=== PATIENT | male | born 1985 | race Caucasian/White ===

== ENCOUNTER 2018-11-28 14:03 | Day surgery (SDC) | payer OTHER ==
[~2018-11-28] VITALS: Ht 182.9 cm; Wt 96.6 kg
[2018-11-28] MEDS ORDERED: METOCLOPRAMIDE H5 MG PO (14:17)
[2018-11-28] MEDS ORDERED: ZOFRAN8 MG PO (14:20)
--- NOTE | 2018-11-28 15:41 | NUR ---
11/28/18 1541 Pedro Fiore7) PATIENT ARRIVES ALERT AND ORIENTED, WITH 0 COMPLAINTS.
--- NOTE | 2018-11-30 16:02 | OR ---
[facility] [address], [place] [address] Signed DATE OF OPERATION: 11/28/2018 SURGEON: Stone Wiggins MD PREOPERATIVE DIAGNOSES: 1. Recent appearance of colonic obstruction at sigmoid on CT scan, progressive months of bloating and fullness. 2. Diverticular changes. POSTOPERATIVE DIAGNOSES: 1. Inflammatory stricture at approximately 28 cm. 2. Mild proctitis. PROCEDURES PERFORMED: Colonoscopy beyond hepatic flexure into right colon with biopsies of strictured area at 28 cm and biopsy of rectum. ANESTHESIA: Intravenous sedation, fentanyl 150 mcg, and Versed 10 mg. INDICATION: This 33-year-old white man is a patient of Linnea Webster and has rather complex past medical history. This includes Hodgkin lymphoma diagnosed at age 16 years, undergoing treatment at [facility] including chemotherapy and radiation therapy. He is said to have stage IIA disease at that time manifesting by cervical adenopathy. 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 He recently underwent CT scan of the abdomen under the direction of BURTON Canales, for abdominal bloating, fullness, and so forth. This showed what appeared to be essentially obstructed colon with considerable amount of proximal dilation from the rectosigmoid upward. Strangely, he did not have profound illness and conservative measures including enema therapy and episodic magnesium citrate and a low-fiber diet allowed for improvement. A post preliminary bowel prep abdominal x-ray showed a fair amount of air within the colon, but no profound amount of stool as there was before. He has undergone a bowel prep with split doses of magnesium citrate, so as to not precipitate a complete and total obstruction. He is admitted to undergo colonoscopy to better characterize the obstructive process in the sigmoid. He understands the risks of bleeding, infection, and perforation and wished to proceed. FINDINGS: Electronically Signed By: STONE WIGGINS MD 11/30/18 1602 PATIENT NAME: MIN GILLETTE OPERATIVE REPORT DATE OF : 81 REPORT #: [id number] PHYSICIAN: STONE WIGGINS MD PCP: LINNEA WEBSTER PA-C REPORT IS CONFIDENTIAL AND NOT TO BE RELEASED WITHOUT AUTHORIZATION [facility] [address], [place] [address] Signed The area in question was at about 28 cm from the anal verge and represented inflamed mucosa of the colon, most consistent with inflammatory stricture (incomplete). This may have been caused by diverticular changes as there were diverticula in the sigmoid and left colon as well. With great care and fair amount of effort, the scope was passed beyond the strictured area proximally all the way to the right colon where liquid stool was noted, but it was a poorly prepped bowel in most respects from that regard. Good biopsies of the lesion in question were undertaken however. There was good clearance beyond the presumed inflammatory stricture at 28 cm. The rectum had mild inflammation and biopsies were obtained there. DESCRIPTION OF PROCEDURE: The patient was brought to the endoscopy suite and placed in lateral decubitus position, given intravenous sedation to the point of slurred speech and nystagmus. Full cardiopulmonary monitoring was undertaken. Digital rectal examination was normal. An Olympus video colonoscope was passed in the rectum and manipulated into the rectosigmoid where diverticula were noted as well as some bits of semi-formed stool. Irrigation was undertaken as needed. The scope was advanced further and diverticula were noted at approximately 28-30 cm, an area that was dense and firm and rubbery noted. This appeared to have inflammatory mucosa. There was no sign of neoplasm proper. With various manipulations, the scope was managed to pass beyond this area. The descending colon had semi-formed and liquid stool. The scope was passed beyond this ultimately into the right colon with similar findings. The scope was then withdrawn and careful examination undertaken in the left colon. In addition, a diverticula was the area in question of obstruction, which appeared to be an inflammatory stricture. It was reasonably circumferential but irregular. It did not appear like cancer and did not appear to be intramural lymphoma. Multiple biopsies were taken of the area. The scope was withdrawn and the rectum itself had mild chronic inflammation. This was biopsied as well. Scope was removed. The patient was taken to recovery room in good condition. CONCLUDING DIAGNOSIS: Apparent incomplete inflammatory stricture of sigmoid, probably related to diverticular disease. No clear evidence of cancer in any way and unlikely to represent a recurrence of Hodgkin lymphoma. PLAN: We will maintain a low-fiber diet until I see him back in a few weeks. Additional imaging or even repeat endoscopy at some point may be appropriate. Stone Wiggins MD Electronically Signed By: STONE WIGGINS MD 11/30/18 1602 PATIENT NAME: MIN GILLETTE OPERATIVE REPORT DATE OF : [birth year] REPORT #: [id number] PHYSICIAN: STONE WIGGINS MD PCP: LINNEA WEBSTER PA-C REPORT IS CONFIDENTIAL AND NOT TO BE RELEASED WITHOUT AUTHORIZATION [address], [place] [address] Signed /[facility] /[id number] cc: Linnea Webster PA-C Copies: LINNEA WEBSTER PA-C ~ Electronically Signed By: STONE WIGGINS MD 11/30/18 1602 PATIENT NAME: MIN MYLA OPERATIVE REPORT DATE OF : [birth year] REPORT #: [id number] PHYSICIAN: STONE WIGGINS MD PCP: LINNEA WEBSTER PA-C REPORT IS CONFIDENTIAL AND NOT TO BE RELEASED WITHOUT AUTHORIZATION
== END 2018-11-28 16:10 | disposition home or self-care (01) ==
LOC: DS 14:03 → OPS 14:03 → DS 15:15 → OPS 16:10
PROVIDERS: Surgery
PROC: 0DBE8ZX Excision of Large Intestine, Via Natural or Artificial Opening Endoscopic, Diagnostic (ICD-10-PCS; 2018-11-28)
PROC: 0DBP8ZX Excision of Rectum, Via Natural or Artificial Opening Endoscopic, Diagnostic (ICD-10-PCS; 2018-11-28)
PROC: 0DBK8ZX Excision of Ascending Colon, Via Natural or Artificial Opening Endoscopic, Diagnostic (ICD-10-PCS; principal; 2018-11-28 15:15)
DX: K56.699 Other intestinal obstruction unspecified as to partial versus complete obstruction (principal); K62.89 Other specified diseases of anus and rectum; K57.30 Diverticulosis of large intestine without perforation or abscess without bleeding; D22.9 Melanocytic nevi, unspecified; Z79.899 Other long term (current) drug therapy; Z85.71 Personal history of Hodgkin lymphoma
CPT/HCPCS: 99153; G0500; J2250; J3010

== ENCOUNTER 2019-03-07 22:27 | Emergency (ER) | payer OTHER ==
[~2019-03-07] VITALS: Ht 177.8 cm; Wt 88.5 kg
--- OUTSIDE RECORDS SUMMARY | ~2019-03-07 | XMS | Clinical Summary ---
Demographics + + + | Address | [address] | | | [place] [address] | + + + | Home Phone | | + + + | Preferred Language | Unknown | + + + | Marital Status | | + + + | Mu-Ism Affiliation | Unknown | + + + | Race | Unknown | + + + | Ethnic Group | Unknown | + + + Author + + + | Author | [facility] | | | and [place] | + + + | Organization | [facility] | | | and [place] | + + + | Address | Unknown | + + + | Phone | Unavailable | + + + Care Team Providers + +------+ + | Care Metal Punch Press Operator Name | Role | Phone | + +------+ + PCP | Unavailable | + +------+ + Allergies Not on File Medications Not on file Active Problems Not on file Social History + +-------+ +--------+------+ | Tobacco Use | Types | Packs/Day | Years | Date | | | | | Used | | + +-------+ +--------+------+ | Never Assessed | | | | | + +-------+ +--------+------+ + + + | Sex Assigned at | Date Recorded | | | | + + + | Not on file | | + + + + + + + | Job Start Date | Occupation | Industry | + + + + | Not on file | Not on file | Not on file | + + + + + + + + | Travel History | Travel Start | Travel End | + + + + + + | No recent travel history available. | + + Last Filed Vital Signs Not on file Plan of Treatment + + + + + | Health Maintenance | Due Date | Last Done | Comments | + + + + + | Vaccine: | | | | | Dtap/Tdap/Td (1 - | 3 | | | | Tdap) | | | | + + + + + | Vaccine: Influenza | | | | | (#1) | 9 | | | + + + + + Results Not on filefrom Last 3 Months"
--- OUTSIDE RECORDS SUMMARY | ~2019-03-07 | XMS | Clinical Summary ---
Demographics + + + | Address | [address] | | | [place] [address] | + + + | Home Phone | | + + + | Preferred Language | Unknown | + + + | Marital Status | | + + + | Mu-Ism Affiliation | Unknown | + + + | Race | Unknown | + + + | Ethnic Group | Unknown | + + + Author + + + | Author | [facility] | | | and [place] | + + + | Organization | [facility] | | | and [place] | + + + | Address | Unknown | + + + | Phone | Unavailable | + + + Care Team Providers + +------+ + | Care Marketing Admin Name | Role | Phone | + [...]
[~2019-03-07 22:27] MED LIST: FAMOTIDINE20 MG PO; FLAGYL500 MG PO; IBUPROFEN600 MG PO; METOCLOPRAMIDE H5 MG PO; NEOMYCIN SULFA500 MG PO; TYLENOL EXTRA500 MG PO; ZOFRAN8 MG PO
--- OUTSIDE RECORDS SUMMARY | 2019-03-07 22:30 | XMS ---
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 Ermelinda has no Care Guidelines for this patient. Rory VISIT COUNT (12 MO.) 1 [facility] TOTAL 1 NOTE: Visits indicate total known visits. ED/UCC VISIT TRACKING (12 MO.) 03/07/2019 22:27 [facility] [place] TYPE: Emergency COMPLAINT: - ABDOMINAL PAIN INPATIENT VISIT TRACKING (12 MO.) 01/10/2019 08:[address] [facility] TYPE: Medical Surgical COMPLAINT: - LEFT COLECTOMY DIAGNOSES: - Appendicular concretions - Other long-term (current) drug therapy - Personal history of nicotine dependence - Appendicular concretions - Unspecified intestinal obstruction, unspecified as to partial versus complete obstruction - Personal history of Hodgkin lymphoma - Personal history of nicotine dependence - Other long lines operator (current) drug therapy - Other specified disorders of muscle - FDC (current) use of antibiotics - Other partial intestinal obstruction - Personal history of Hodgkin lymphoma - Other appendicitis - Other appendicitis - Other specified disorders of muscle - FDC (current) use of antibiotics [email or web address]
[2019-03-07] MEDS ORDERED: RITALIN20 MG PO (22:40)
--- NOTE | 2019-03-08 10:24 | CONS ---
[facility] [address], [place] [address] Signed DATE OF CONSULTATION: CONSULTING PHYSICIAN: Stone Wiggins MD. REQUESTING PHYSICIAN: Oli Bose MD PROBLEM: Prolapsed ileostomy. HISTORY: This 33-year-old white man is well known to me from the past. He had chronic sigmoid obstruction related to stricturing requiring a left sigmoid colectomy with side-to-end coloproctostomy. He had massive dilation of the proximal end and a protective loop ileostomy was fashioned. This was approximately six weeks ago or so. The patient has been progressing well with good function of his ileostomy. A plan for barium enema to assess the anastomosis to allow for takedown of the temporary diverting loop ileostomy has been outlined. The patient today upon removing his ostomy appliance noted marked protrusion of small bowel. A considerable amount of edema and weeping and so forth was noted. He presented to the emergency room, where he was thoroughly evaluated by the emergency room physician whose efforts at reduction were a bit unsuccessful. Some granulated sugar was applied to the area, but of incomplete benefit. On that basis, I was asked to further assist. PHYSICAL EXAMINATION: GENERAL: The patient is alert and oriented and certainly nontoxic. He is accompanied by his live-in girlfriend, who is a registered nurse. ABDOMEN: The ileostomy appears to be viable though there was some considerable amount of edema and a purplish hue to some of the mucosa. There was no sign of separation of the ileostomy from the skin itself. It is recalled that the skin around the ileostomy is from prior skin grafting and therefore has a coarse texture. DESCRIPTION OF PROCEDURE: In the supine position, gloves were used to manually reduce the edema of the ileostomy itself. This allowed for some reduction. Ultimately, the skin was cleansed and an ostomy appliance cut to appropriate configuration and then secured. Granulated sugar was then applied to still somewhat edematous mucosa in the distal defunctionalized limb. The more proximal functional limb is quite viable and probing of each orifice shows good patency. Egress of air from the proximal end is noted and there is no sign of ischemic necrosis or anything of that sort. Electronically Signed By: STONE WIGGINS MD 03/08/19 1024 PATIENT NAME: MIN GILLETTE CONSULTATION DATE OF : 81 REPORT #: [id number] PHYSICIAN: STONE WIGGINS MD PCP: ACOSTA CHADWICK PA-C REPORT IS CONFIDENTIAL AND NOT TO BE RELEASED WITHOUT AUTHORIZATION [facility] [address] [place] [id number] Signed I confirmed with Radiology Department that a contrast study could be undertaken per rectum tomorrow. Arrangements will be made to accomplish this study to allow for prompt takedown of the loop ileostomy. If there is no leakage, and I do not suspect there would be, then takedown of the ileostomy could be accomplished so as to avoid a recurrence of this episode. The patient and his significant other understand the issues at hand and will be proceeding home shortly. MD PIERRE Vanessa/SAUD /[id number] cc: Oli Bose MD Copies: OLI BOSE MD ~ Electronically Signed By: STONE WIGGINS MD 03/08/19 1024 PATIENT NAME: MIN GILLETTE CONSULTATION DATE OF : 81 REPORT #: [id number] PHYSICIAN: STONE WIGGINS MD PCP: ACOSTA CHADWICK PA-C REPORT IS CONFIDENTIAL AND NOT TO BE RELEASED WITHOUT AUTHORIZATION
== END 2019-03-08 00:24 | disposition home or self-care (01) ==
LOC: ED 22:27
DX: K94.19 Other complications of enterostomy (principal); Z79.899 Other long term (current) drug therapy
CPT/HCPCS: 99283

== ENCOUNTER 2019-03-11 22:51 | Inpatient (IN) | payer OTHER ==
[~2019-03-11] VITALS: Ht 177.8 cm; Wt 91.7 kg
--- NOTE | ~2019-03-11 | DS ---
[facility] [address] [place], [place] [address] Draft ADMISSION DATE: 03/12/2019 DISCHARGE DATE: 03/15/2019 REASON FOR ADMISSION: This 33-year-old man is well known to me from the past having undergone complicated sigmoid colectomy with markedly dilated proximal colon related to benign stricture in the sigmoid colon. This was on January 10, 2019. He underwent resection of the sigmoid with side-to-end coloproctostomy and a protective ileostomy based on the dilated and edematous more proximal colon. Plans have been made for takedown of the ileostomy in 4-6 weeks following resection. He was seen by me recently on March 08 in the emergency room where he was noted to have a prolapsing segment of the ileum. This was in the distal portion. Had good continued output of enteric effluent as might be expected. He underwent a contrast study from below (barium enema) confirming a patent anastomosis without sign of leakage and plan for elective ileostomy takedown were anticipated. He presented to the emergency room late in the night with bloody effluent related to the prolapsing ileum, however. On March 08, the ileum was reduced and edema reduced with granulated sugar as well as manipulation, but he has had pain in the region of the ileostomy itself and on that basis, he is admitted for further evaluation and care. PERTINENT PHYSICAL EXAMINATION: GENERAL: A well-developed, well-nourished white man who did not look systemically toxic. He is accompanied by his girlfriend who is a nurse. CHEST: Clear. HEART: Regular without murmur. ABDOMEN: Nondistended. Midline incision is well healed. Ileostomy is examined, showing protrusion and prolapsing, and the distal diverted end has no sign of freddy necrosis though there were definitely edematous changes and a hemorrhagic exudate. LABORATORY DATA: Lab studies were normal. His bicarb was 26. CBC showed a white count of 6.4. HOSPITAL COURSE: He was admitted, given intravenous fluids, parenteral pain medication and IV antibiotics. Given the ischemic mucosa of the prolapsing ileostomy, takedown of the ileostomy with resection of the offending segment was deemed most appropriate. On Wednesday the following day of admission, he did undergo operation through the ileostomy site. This included segmental resection of small bowel with end-to-end ileo-ileostomy. 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 On that basis, those segments of skin were mobilized and reapproximated with interrupted Prolene suture after fascial repair of the ileostomy defect and a Arthur drain was placed beneath that for drainage. His postoperative course was rather unremarkable. He was maintained on antibiotics for 24 hours postoperatively and advanced in his diet. An opiate free approach was taken and Motrin and Tylenol were beneficial for his pain control. In addition, a unilateral right-sided tap block was used. By day of discharge, he is ambulating well, having normal bowel movements. The wound is healing well. He is tolerating regular diet and Tylenol and Motrin for pain control as needed. FOLLOWUP PLAN: He is returned to see me in approximately a month. At that point, the permanent sutures of the skin from the right lower abdomen will be removed. In addition, he will avoid lifting more than 20 pounds for the next 4 weeks. His diet is as tolerated. He will be sure to cleanse the right lower abdominal wound daily. DISCHARGE MEDICATIONS: Shall include: 1. Tylenol 1000 mg p.o. q.6 hours p.r.n. pain. 2. Motrin 600 mg p.o. q.6 hours for pain. 3. Additionally Pepcid 20 mg p.o. b.i.d. 4. He will restart his methylphenidate extended release 20 mg daily. DISCHARGE DIAGNOSES: 1. Mucosal ischemia of prolapsed ileostomy site. 2. History of sigmoid colectomy with protective ileostomy in December 2018 related to benign sigmoidal stricture. 3. 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 4. Attention deficit disorder. MD PIERRE Vanessa/COLLINL /[id number] PATIENT NAME: MIN GILLETTE DISCHARGE SUMMARY DATE OF : [birth year] REPORT #: [id number] PHYSICIAN: STONE WIGGINS MD PCP: ACOSTA CHADWICK PA-C REPORT IS CONFIDENTIAL AND NOT TO BE RELEASED WITHOUT AUTHORIZATION [address] [address] [place] cc: NAHUN Ann MD Copies: ACOSTA CHADWICK PA-C, KELLY DEAN MD ~ PATIENT NAME: MIN GILLETTE DISCHARGE SUMMARY DATE OF : [birth year] REPORT #: [id number] PHYSICIAN: STONE WIGGINS MD PCP: ACOSTA CHADWICK PA-C REPORT IS CONFIDENTIAL AND NOT TO BE RELEASED WITHOUT AUTHORIZATION
--- OUTSIDE RECORDS SUMMARY | ~2019-03-11 | XMS | Clinical Summary ---
Demographics + + + | Address | [address] | | | [place] [address] | + + + | Home Phone | | + + + | Preferred Language | Unknown | + + + | Marital Status | | + + + | Jehovah'S Witness Affiliation | Unknown | + + + | Race | Unknown | + + + | Ethnic Group | Unknown | + + + Author + + + | Author | [facility] | | | and [place] | + + + | Organization | [facility] | | | and [place] | + + + | Address | Unknown | + + + | Phone | Unavailable | + + + Care Team Providers + +------+ + | Care Field Appraiser Name | Role | Phone | + [...]
--- OUTSIDE RECORDS SUMMARY | ~2019-03-11 | XMS | Clinical Summary ---
Demographics + + + | Address | [address] | | | [place] [address] | + + + | Home Phone | | + + + | Preferred Language | Unknown | + + + | Marital Status | | + + + | Anabaptist Affiliation | Unknown | + + + | Race | Unknown | + + + | Ethnic Group | Unknown | + + + Author + + + | Author | [facility] | | | and [place] | + + + | Organization | [facility] | | | and [place] | + + + | Address | Unknown | + + + | Phone | Unavailable | + + + Care Team Providers + +------+ + | Care Toll Bridge Operator Name | Role | Phone | [...]
--- OUTSIDE RECORDS SUMMARY | ~2019-03-11 | XMS | Clinical Summary ---
Demographics + + + | Address | [address] | | | [place] [address] | + + + | Home Phone | | + + + | Preferred Language | Unknown | + + + | Marital Status | | + + + | Church Affiliation | Unknown | + + + | Race | Unknown | + + + | Ethnic Group | Unknown | + + + Author + + + | Author | [facility] | | | and [place] | + + + | Organization | [facility] | | | and [place] | + + + | Address | Unknown | + + + | Phone | Unavailable | + + + Care Team Providers + +------+ + | Care Consulting Practice Director Name | Role | Phone | + [...]
[~2019-03-11 22:51] MED LIST changes: +RITALIN20 MG PO
--- OUTSIDE RECORDS SUMMARY | 2019-03-11 22:54 | XMS ---
PreManage Notification: MIN GILLETTE Security Director Shopper Marketing Events No recent Security Events currently on file CRITERIA MET - [facility] - 2 Visits in 30 Days CARE PROVIDERS ACOSTA CHADWICK Physician Spanish Language Lecturer 03/08/2019-Current PHONE: [phone] Ermelinda has no Care Guidelines for this patient. Rory VISIT COUNT (12 MO.) 2 [facility] TOTAL 2 NOTE: Visits indicate total known visits. ED/UCC VISIT TRACKING (12 MO.) 03/11/2019 22:52 [facility] TYPE: Emergency COMPLAINT: - PAIN 03/07/2019 22:27 [facility] TYPE: Emergency COMPLAINT: - ABDOMINAL PAIN INPATIENT VISIT TRACKING (12 MO.) 01/10/2019 08:45 [facility] TYPE: Medical Surgical COMPLAINT: - LEFT COLECTOMY DIAGNOSES: - Appendicular concretions - Other porcelain enamel installer (current) drug therapy - Personal history of nicotine dependence - Appendicular concretions - Unsp intestnl obst, unsp as to partial versus complete obst - Personal history of Hodgkin lymphoma - Personal history of nicotine dependence - Other longterm (current) drug therapy - Other specified disorders of muscle - senior care (current) use of antibiotics - Other partial intestinal obstruction - Personal history of Hodgkin lymphoma - Other appendicitis - Other appendicitis - Other specified disorders of muscle - human capital manager (current) use of antibiotics [email or web address]
--- NOTE | 2019-03-12 11:10 | HP ---
[facility] [address], [place] [address] Signed ADMISSION DATE: 03/12/2019 REASON FOR ADMISSION: Persisting symptoms related to prolapsing loop ileostomy. HISTORY: This 33-year-old white man is well known to me from the past, most recently seen in the emergency room on March 08, 2019. At that time, he was seen by Dr. Little. On January 10, 2019, the patient underwent a complicated sigmoid colectomy with markedly dilated proximal COLON related to benign stricture of the sigmoid colon. Given the disparity of the size of the more proximal colon and the distal rectum and despite a side-to-end coloproctostomy, a diverting loop ileostomy was fashioned as a protective ileostomy in relation to the coloproctostomy. He was seen recently by me on March 08 in the emergency room where he was noted to have prolapsing segment of the ileum. He had continued output of enteric effluent from the area as might be expected, but a fair amount of edema in the distal segment. The area was gently compressed allowing for improvement of his edema and his ostomy wafer was refitted. A contrast study was performed the following day ( gasrograffin and then barium) which confirmed the colocolostomy was widely patent and without leak. He has had general malaise since that time generally speaking. He had no white count at that time. He has had no fever, chills, or other issues, but he has called my office a few times since then or at least his significant other registered nurse, girlfriend, regarding him being not entirely well at this time. He has had pain around the ileostomy site.... not deep within, but disabling nevertheless. He continues to have good ostomy output. Concern was maintained by his significant other regarding the appearance of the mucosa of the ileostomy with its prolapse. There has been a lot of edema. On that basis, he presented to the emergency room again late this evening and was evaluated by Dr. Rothman. Without much familiarity regarding such ostomies and their various tissues, I was asked to see the patient, though I am not regional planner at this time. The patient is having no fever or chills. No problem with ileostomy output, however, has noted bloody mucoid discharge within the ostomy bag. He also says he "knows when stool is coming" as regard to the ostomy where previously it was always a spontaneous Electronically Signed By: STONE WIGGINS MD 03/12/19 1110 PATIENT NAME: IMN GILLETTE HISTORY AND PHYSICAL DATE OF : [birth year] REPORT #: [id number] PHYSICIAN: STONE WIGGINS MD PCP: ACOSTA CHADWICK PA-C REPORT IS CONFIDENTIAL AND NOT TO BE RELEASED WITHOUT AUTHORIZATION [address] [address] Signed passage. 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 The cause of the relationship between his enigmatic colonic stricture and interventions in the past is uncertain. The final path report showed no malignancy. SOCIAL HISTORY: He is now on the [employer]. He is taking a part-time job at [employer]. 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 His live-in girlfriend is a nurse in [place], [place]. REVIEW OF SYSTEMS: He has had no shortness of breath, chest pain, fever, or chills. He has a general sense of malaise. Ostomy output remains liquid and good efflux of air is noted as well. He does not have abdominal pain proper but does have discomfort in the region of the ileostomy itself which is in the right mid abdomen. PHYSICAL EXAMINATION: GENERAL: Pleasant white man accompanied by his girlfriend who is a nurse. He has a reddish moe. Trachea is midline. CHEST: Shows normal respiratory excursion. There is no tachypnea. HEART: Regular without murmur. ABDOMEN: Nondistended. Midline incision is healing well. Ileostomy is examined and there is protrusion of (prolapsing portion). The distal end (diverted) has the biggest concern. There is no sign of freddy necrosis that I can tell, though there are definitely edematous changes and so on. LABORATORY DATA: His lab studies at present show normal Chem profile. Coag studies show INR of 0.9. Chem profile is normal. Bicarb is 26. CBC is pending. ASSESSMENT: Following his most recent discovery of prolapsing loop ileostomy, the following morning, he underwent a barium study to ascertain the patency of his coloproctostomy. I have reviewed those films previously and they showed good connection without sign of problem. Certainly, no sign of extravasation. Planned takedown of the ileostomy was underway. It was planned that he would undergo takedown of the loop ileostomy in a controlled elective setting after approval through the [facility], however, he presents with persisting pain in the region of the ostomy and changes of the ostomy mucosa Electronically Signed By: STONE WIGGINS MD 03/12/19 1110 PATIENT NAME: MIN GILLETTE HISTORY AND PHYSICAL DATE OF : [birth year] REPORT #: [id number] PHYSICIAN: STONE WIGGINS MD PCP: ACOSTA CHADWICK PA-C REPORT IS CONFIDENTIAL AND NOT TO BE RELEASED WITHOUT AUTHORIZATION [facility] [address] [place], [place] [address] Signed suggestive of persistent edema and sloughing of mucosa to some degree and some amount of blood. There does not appear to be freddy infarction, however. Notably, his CBC results are pending. Under the circumstances of his situation, I have recommended admission to the hospital and depending on several factors including his white count, clinical course, and so forth and consideration might be made for takedown of the ileostomy at this time, so as to manage the persistent edema and low-grade areas of compromise causing bleeding and so forth soon. I discussed with him both the technique of operative intervention which woiuld not require an incision other than at the ileostomy itself. His initial operation was January 10 and therefore, he is quite reasonably likely to have resolution of adhesions created at the time of his initial operation. His midline incision site is soft. I will initiate antibiotics pending the findings of his CBC on the possibility he may have more ischemic change to the portion of the prolapsed ileum that I clinically appreciate. He will remain n.p.o. and we will re-evaluate him in the morning. MD PIERRE Vanessa/SAUD /[id number] cc: Oliva Rothman MD Copies: OLIVA ROTHMAN MD ~ Electronically Signed By: STONE WIGGINS MD 03/12/19 1110 PATIENT NAME: MIN GILLETTE HISTORY AND PHYSICAL DATE OF : [birth year] REPORT #: [id number] PHYSICIAN: STONE WIGGINS MD PCP: ACOSTA CHADWICK PA-C REPORT IS CONFIDENTIAL AND NOT TO BE RELEASED WITHOUT AUTHORIZATION
--- NOTE | 2019-03-13 09:08 | OR ---
[facility] [address], [place] [address] Signed DATE OF OPERATION: 03/12/2019 SURGEON: Stone Wiggins MD PREOPERATIVE DIAGNOSES: 1. Prolapsing loop ileostomy with mucosal ischemia. 2. Distant history of multiple abdominal wall skin grafts. 3. History of segmental colon resection greater than 6 weeks ago with protective ileostomy. POSTOPERATIVE DIAGNOSES: 1. Prolapsing loop ileostomy with mucosal ischemia. 2. Distant history of multiple abdominal wall skin grafts. 3. History of segmental colon resection greater than 6 weeks ago with protective ileostomy. PROCEDURES PERFORMED: 1. Mobilization of incarcerated prolapsing ileostomy (loop type). 2. Segmental resection of small bowel with end-to-end enteroenterostomy. ANESTHESIA: General endotracheal; Estelle Veronica, BARREL [employer]; and unilateral tap block, right abdomen. INDICATION: This 33-year-old white man has complex distant history of multiple hairy melanocytic nevi, undergoing multiple skin excisions and skin grafting in childhood. Quite sometime ago, he presented with near-total colonic obstruction and was found to have a stricture in the sigmoid colon, not associated with malignancy. About 6 weeks ago, he underwent segmental bowel resection and side-to-end coloproctostomy. The more proximal colon was chronically and massively dilated, and it was deemed important that a protective ileostomy be incorporated in his care plan. He has done well with that and yet few days ago presented to the emergency room with prolapse of the loop ileostomy. It was still functioning, but markedly edematous and not ischemic in appearance at first. He underwent manual reduction of the prolapse by me and within 24 hours underwent a contrast study to assess the anastomosis previously performed. It was widely patent and without sign of and anastomotic leak. A plan was made for elective takedown of the ileostomy. However, he presented to the emergency room late last night just before midnight with complaints of bloody fluid within the ileostomy bag. His live-in Electronically Signed By: STONE WIGGINS MD 03/13/19 0908 PATIENT NAME: MIN GILLETTE OPERATIVE REPORT DATE OF : [birth year] REPORT #: [id number] PHYSICIAN: STONE WIGGINS MD PCP: ACOSTA CHADWICK PA-C REPORT IS CONFIDENTIAL AND NOT TO BE RELEASED WITHOUT AUTHORIZATION [address] [address] Signed girlfriend, who is an RN had been calling the office and I had discussed things with her previously several days ago. Although he has no white count and no fever or chills, he has pain at the ostomy site and on that basis he is admitted to the hospital. He has been given intravenous fluids, parenteral antibiotics, and given his persistent problems takedown of the ileostomy and segmental bowel resection as appropriate is recommended. The risks of bleeding, infection, anastomotic failure, and other unforeseen complications was reviewed in detail. Somewhat complicating his overall situation, he has the multiple abdominal wall skin grafts. He has one of which provides the base for his ileostomy. He understands risks of surgery and wishes to proceed. FINDINGS: The prolapsed loop ileostomy was about five inches in length. Superficial ischemic changes of the mucosa were noted. Mobilization of the loop ileostomy through the right lower abdominal incision was accomplished to allow for segmental bowel resection and end-to-end enteroenterostomy. A midline incision was not required. A hand sewn end to end enteroenterostomy was most advisable in this situation given the anatomic defect at hand. By conclusion a widely patent anatomically optimal anastomosis was accomplished. DESCRIPTION OF PROCEDURE: The patient was brought to the operating room, given a general endotracheal anesthetic. Preoperative antibiotic cefoxitin was given. His ileostomy bag was removed and the various adhesive residual was removed. The abdomen was prepared fully with Betadine based scrub and prep solution and a Yang catheter was placed as well. An incision was made in the skin surrounding the loop ileostomy. Dissection carried through the subcutaneous tissue with electrocautery with meticulous care. Ultimately, the bowel could be freed from its surroundings more fully and this segment of bowel was ultimately freed from its peritoneal attachments and explanted out of the abdomen fully. Edema and thickening of both proximal and distal limbs was noted. Note is made of the mucosal ischemia of the prolapsed distal ileal segment (closest to the cecum). Good viability of the proximal segment was noted. Segmental resection was deemed most advisable given the anatomic findings. A window was created in the mesenteric side in each side of the bowel loop on each side of the loop ileostomy and a SHERRON stapling device was used to transect the small bowel loops. The mesentery was then scored and sequentially secured with hemostats and #0 silk ties. Given that the prolapsed ileal segment closest to the cecum was somewhat tethered as would be expected by the length and position in relation to the cecum further mobility of the segment was not easily accomplished. Electronically Signed By: STONE WIGGINS MD 03/13/19 0908 PATIENT NAME: MIN GILLETTE OPERATIVE REPORT DATE OF : [birth year] REPORT #: [id number] PHYSICIAN: STONE WIGGINS MD PCP: ACOSTA CHADWICK PA-C REPORT IS CONFIDENTIAL AND NOT TO BE RELEASED WITHOUT AUTHORIZATION [facility] [address], [place] [address] Signed Although a [id number] stapled anastomosis is a common approach, an end-to-end enteroenterostomy was deemed more advisable in this situation. An end-to-end ileoileostomy was then fashioned in a two layer technique of interrupted 3-0 silk suture for the serosal layer and interrupted 3-0 Vicryl for the mucosal layer. The defect of the mesentery was quite minimal and was secured with a few silk sutures. The anastomotic area was gently replaced into the abdominal cavity after incising inferiorly on the aperture through the abdominal wall irrigation undertaken. Plans were then made for closure. The posterior sheath and its attendant peritoneum was reapproximated with running bidirectional #1 PDS suture. A few clips were placed onto an inferior epigastric arterial vessel, so as to avoid postoperative rectus sheath hematoma. The muscle layer was copiously irrigated and the anterior rectus sheath reapproximated with interrupted 2-0 PDS. Note is made of dense fibrosis of the dermis and skin from prior skin grafting. Although I normally would simply pack the ostomy site with gauze to allow for contraction, I think it quite unlikely under the circumstances. On that basis, the skin and underlying subcutaneous fat was freed from the overlying fascia in a prudent way to allow for reapproximation of the thickened grafted skin with interrupted vertical mattress oh Prolene suture. A Arthur drain was placed beneath it closure layer for to allow for temporary drainage and easy removal. Gauze Band-Aid was applied. The counselor at law then performed a TAP block on the right side with ultrasound guidance for postoperative analgesic benefit. The patient was ultimately extubated and transferred to recovery room in good condition having suffered no complications. COMPLICATIONS: Sponge, needle, and instrument counts were correct x3. Stone Wiggins MD JM/MODL /[id number] cc: Terrence Baer MD Electronically Signed By: STONE WIGGINS MD 03/13/19 0908 PATIENT NAME: MIN GILLETTE OPERATIVE REPORT DATE OF : [birth year] REPORT #: [id number] PHYSICIAN: STONE WIGGINS MD PCP: ACOSTA CHADWICK PA-C REPORT IS CONFIDENTIAL AND NOT TO BE RELEASED WITHOUT AUTHORIZATION [facility] [address] [place] [id number] Signed NAHUN Ann MD Copies: TERRENCE BAER MD, CHLOE K PA-C PRIDGEN, KELLY DEAN MD ~ Electronically Signed By: STONE WIGGINS MD 03/13/19 0908 PATIENT NAME: MIN GILLETTE OPERATIVE REPORT DATE OF : [birth year] REPORT #: [id number] PHYSICIAN: STONE WIGGINS MD PCP: ACOSTA CHADWICK PA-C REPORT IS CONFIDENTIAL AND NOT TO BE RELEASED WITHOUT AUTHORIZATION
[2019-03-13] MEDS ORDERED: METHYLPHENIDATE20 M7 PO (09:40)
[2019-03-13] MEDS ORDERED: TYLENOL EXTRA500 MG PO (09:52)
[2019-03-15] MEDS ORDERED: TYLENOL EXTRA500 MG PO (11:18)
--- NOTE | 2019-03-15 16:30 | PATH ---
[facility] [address] [place], [place] [address] Signed SPECIMEN(S): A SMALL BOWEL OF PROLAPSED ILEOSTOMY SPECIMEN SOURCE: A. SMALL BOWEL OF PROLAPSED ILEOSTOMY CLINICAL HISTORY: Prolapsing loop ileostomy. FINAL PATHOLOGIC DIAGNOSIS: Small bowel and ostomy site, "prolapsing loop ileostomy", excision: - Small bowel with areas of mucosal and submucosal necrosis surrounded by ischemic-type mucosal changes. - Extensive subserosal fat necrosis and serosal adhesion formation. - Ostomy site with acute and chronic inflammation. - Viable small bowel resection margin. - Negative for dysplasia or malignancy. NAL:cml:C2NR MICROSCOPIC EXAMINATION: Histologic sections of all submitted blocks are examined by light microscopy. These findings, together with the gross examination, support the pathologic diagnosis. GROSS DESCRIPTION: The specimen, labeled "SG, portion of small bowel/prolapsed ileostomy," is received in formalin and consists of a 7.5 cm in length by 4.0 cm in internal circumference portion of bowel with a stapled resection margin at one aspect and a moreno-red to moreno-todd and granular ostomy with surrounding moreno-pink skin at the opposing aspect. The staple line is removed and the underlying resection margin is inked blue. Sectioning shows [id number] cut surfaces with no discrete lesions grossly identified. Claim Approver sections are submitted in cassettes (A1-A5). AR (under the direct supervision of a pathologist) The Gross Description was prepared using a voice recognition system. The report was reviewed for accuracy; however, sound-alike word errors, addition and/or deletions may occur. If there is any question about this report, please contact Client Services. PERFORMING LABORATORY: The technical component was performed by Vollee, Garry Cartermadeline Jack, PATIENT NAME: MIN GILLETTE PATHOLOGY DATE OF : [birth year] REPORT #: [id number] PHYSICIAN: LUCAS PATHOLOGY PCP: ACOSTA CHADWICK PA-C REPORT IS CONFIDENTIAL AND NOT TO BE RELEASED WITHOUT AUTHORIZATION [facility] [address] [place], [place] [address] [place] [address] (Bank Analyst: Trina Garcia MD; CLIA# [id number]). Professional [facility] by [facility], [address] [address] (Bank Analyst: Ibrahima Leonard MD; CLIA# [id number]). Diagnostician: Iris Willis MD Pathologist Electronically Signed 03/15/2019 Copies: ~ PATIENT NAME: MIN GILLETTE PATHOLOGY DATE OF : [birth year] REPORT #: [id number] PHYSICIAN: LUCAS PATHOLOGY PCP: ACOSTA CHADWICK PA-C REPORT IS CONFIDENTIAL AND NOT TO BE RELEASED WITHOUT AUTHORIZATION
== END 2019-03-15 12:10 | disposition home or self-care (01) | DRG 330 ==
LOC: ED 22:51 → CCU 03-12 00:27 → MS 03-12 14:55
PROVIDERS: ADMIT Surgery
PROC: 3E0T3BZ Introduction of Anesthetic Agent into Peripheral Nerves and Plexi, Percutaneous Approach (ICD-10-PCS; 2019-03-12)
PROC: 3E0T33Z Introduction of Anti-inflammatory into Peripheral Nerves and Plexi, Percutaneous Approach (ICD-10-PCS; 2019-03-12)
PROC: 0DBB0ZZ Excision of Ileum, Open Approach (ICD-10-PCS; principal; 2019-03-12 11:30)
DX: K94.19 Other complications of enterostomy (principal); K55.9 Vascular disorder of intestine, unspecified; G89.18 Other acute postprocedural pain; F98.8 Other specified behavioral and emotional disorders with onset usually occurring in childhood and adolescence; Z79.899 Other long term (current) drug therapy; Z94.5 Skin transplant status; Z85.72 Personal history of non-Hodgkin lymphomas
CPT/HCPCS: 00790; 36415; 64488; 76942; 80053; 85025; 85610; 85730; 90688; 99284; J0131; J0330; J0694; J1100; J1644; J1885; J2250; J2405; J2704; J3475; J7060; J7120; J7121